=== PATIENT | female | born 1980 | race African-American/Black ===

== ENCOUNTER 2016-03-07 17:15 | Emergency (ER) | payer SELFPAY ==
[2016-03-07] MEDS ORDERED: IBUPROFEN 800 MG TABLET PO ONE (17:29)
--- NOTE | 2016-03-07 17:29 | ER Document Report ---
ED Medical Screen (RME) - General Stated Complaint: TOE PAIN Time seen by provider: 17:26 Mode of Arrival: Ambulatory Information source: Patient Notes: 35-year-old female presents to ED for pain left great toe infected right great toe has some pus coming out of it. Last menstrual period 01/29/2016 TRAVEL OUTSIDE OF THE [place] IN LAST 30 DAYS: No - Related Data Allergies/Adverse Reactions: Penicillins Allergy (Verified 03/07/16 17:26) Past Medical History - Past Medical History Cardiac Medical History: Denies: Hx Coronary Artery Disease, Hx Heart Attack, Hx Hypertension Pulmonary Medical History: Denies: Hx Asthma, Hx Bronchitis, Hx COPD, Hx Pneumonia Neurological Medical History: Denies: Hx Cerebrovascular Accident, Hx Seizures Musculoskeltal Medical History: Denies Hx Arthritis - Immunizations Hx Diphtheria, Pertussis, Tetanus Vaccination: Yes
[2016-03-07] MEDS ORDERED: IBUPROFEN 800 MG TABLET ONE (17:31)
[2016-03-07] MEDS ORDERED: LIDOCAINE 1%/EPINEPHRINE INJ 20 ML VIAL INJ ONE (20:59)
--- NOTE | 2016-03-07 21:39 | ER Document Report ---
ED General - General Chief Complaint: Toe Injury Stated Complaint: TOE PAIN Mode of Arrival: Ambulatory Notes: Patient is a 35-year-old female who presents with 2 weeks of progressively worsening pain of her left medial great toe. Says she has had some purulent drainage from the area that has been increasing in quantity over the last several days. Denies any associated constitutional symptoms. Described the pain as a constant, dull, throbbing pain that is worsened by wearing shoes or applying pressure to the area. Nothing improves the pain. She has not seen her primary care physician regarding today's concerns. States that she has a history of infected ingrown toenails in the past and this feels very similar to those occasions. TRAVEL OUTSIDE OF THE [place] IN LAST 30 DAYS: No - Related Data Allergies/Adverse Reactions: Penicillins Allergy (Verified 03/07/16 17:26) Past Medical History - General Information source: Patient - Social History Smoking Status: Never Smoker Chew tobacco use (# tins/day): No Frequency of alcohol use: None Drug Abuse: None Lives with: Spouse/Significant other Family History: Reviewed & Not Pertinent Patient has suicidal ideation: No Patient has homicidal ideation: No - Past Medical History Cardiac Medical History: Denies: Hx Coronary Artery Disease, Hx Heart Attack, Hx Hypertension Pulmonary Medical History: Denies: Hx Asthma, Hx Bronchitis, Hx COPD, Hx Pneumonia Neurological Medical History: Denies: Hx Cerebrovascular Accident, Hx Seizures Renal/ Medical History: Denies: Hx Peritoneal Dialysis Musculoskeltal Medical History: Denies Hx Arthritis - Immunizations Hx Diphtheria, Pertussis, Tetanus Vaccination: Yes Review of Systems - Review of Systems Notes: Constitutional: Negative for fever. Cardiovascular: Negative for chest pain. Respiratory: Negative for shortness of breath. Gastrointestinal: Negative for vomiting Musculoskeletal: Negative for back pain. Skin: Positive for left great ingrown toenail Neurological: Negative for weakness or numbness. 10 point ROS negative except as marked above and in HPI. Physical Exam - Vital signs Vitals: Temp Pulse Resp BP Pulse Ox 98.1 F 91 16 130/87 H 96 03/07/16 17:19 03/07/16 17:19 03/07/16 17:19 03/07/16 17:19 03/07/16 17:19 Interpretation: Normal Notes: PHYSICAL EXAMINATION: GENERAL: Well-appearing, well-nourished and in no acute distress. HEAD: Atraumatic, normocephalic. EYES: sclera anicteric, conjunctiva are normal. ENT: Moist mucous membranes. NECK: Normal range of motion LUNGS: Normal work of breathing HEART: 2+ DP pulses bilaterally EXTREMITIES: no pitting or edema. No cyanosis. NEUROLOGICAL: No focal neurological deficits. Moves all extremities spontaneously and on command. PSYCH: Normal mood, normal affect. SKIN: Warm, Dry, there is a small area of erythema along the medial aspect of the left great toe with associated purulent drainage Course - Re-evaluation Re-evalutation: 03/07/16 21:40 Patient presents with an infected ingrown toenail on the left great toe on the medial aspect. Vitals otherwise within normal limits. There was small mount of purulent drainage underneath the nail. See procedure note for nail removal technique. Patient tolerated procedure without difficulty. At this time will discharge with return precautions and follow-up recommendations. Verbal discharge instructions given a the bedside and opportunity for questions given. Medication warnings reviewed. Patient is in agreement with this plan and has verbalized understanding of return precautions and the need for primary care follow-up in the next 24-72 hours. - Vital Signs Vital signs: Temp Pulse Resp BP Pulse Ox 98.4 F 76 18 135/91 H 100 03/07/16 21:53 03/07/16 21:53 03/07/16 21:53 03/07/16 21:53 03/07/16 21:53 Procedures - Nail Trephanation/Removal Left Great toe Time completed: 21:10 Nail Trepanation/Removal Location: medial one fourth of the left great toe Betadine prep applied: Yes Method of Drainage: Other - Patient had a digital block applied. After anesthesia was achieved, patient was prepped and draped. The medial one fourth of the toenail was cut down using scissors with extraction using Eli clamps. A moderate amount of pus was drained with extraction of the nail. The wound was subsequently dressed. Sterile Dressing Applied: Yes Finger Splint: No Discharge - Discharge Clinical Impression: Ingrowing toenail with infection Condition: Good Disposition: HOME, SELF-CARE Additional Instructions: You were seen for an ingrown toenail with infection that required partial toenail removal. Please follow-up with podiatry in the next several days. Please clean this area with soap and water twice daily and apply a topical antibiotic. Dress the area after each cleaning. Please return if you develop fever, vomiting, the pain at the site worsens, you notice spreading redness from the area, or you have any other symptoms that are concerning to you.
[2016-03-07 21:54] VITALS: BP 135/91
== END 2016-03-07 21:46 | disposition home or self-care (01) ==
LOC: ER 17:15
PROC: 0HBRXZZ Excision of Toe Nail, External Approach (ICD-10-PCS; principal; 2016-03-07)
DX: L60.0 Ingrowing nail (principal); Z88.0 Allergy status to penicillin
CPT/HCPCS: 99283; 11750; J3490

== ENCOUNTER 2016-06-01 23:42 | Emergency (ER) | payer SELFPAY ==
[2016-06-01 23:52] VITALS: BP 135/84
--- NOTE | 2016-06-02 01:14 | ER Document Report ---
ED Extremity Problem, Lower - General Chief Complaint: Foot Pain Stated Complaint: FOOT PAIN Notes: The patient is a 35-year-old female who presents with multiple complaints. She has had multiple months of swelling around her bilateral shoulders and clavicles. In addition, she has had several days of swelling over the bilateral arches of her feet. She has not taken anything to help. She denies numbness, tingling, injury, new shoes, rash, fevers or difficulty walking. TRAVEL OUTSIDE OF THE [place] IN LAST 30 DAYS: No - Related Data Allergies/Adverse Reactions: Penicillins Allergy (Verified 06/01/16 23:45) Past Medical History - General Information source: Patient - Social History Smoking Status: Unknown if Ever Smoked Family History: Reviewed & Not Pertinent Patient has suicidal ideation: No Patient has homicidal ideation: No - Past Medical History Cardiac Medical History: Denies: Hx Coronary Artery Disease, Hx Heart Attack, Hx Hypertension Pulmonary Medical History: Denies: Hx Asthma, Hx Bronchitis, Hx COPD, Hx Pneumonia Neurological Medical History: Denies: Hx Cerebrovascular Accident, Hx Seizures Renal/ Medical History: Denies: Hx Peritoneal Dialysis Musculoskeltal Medical History: Denies Hx Arthritis - Immunizations Hx Diphtheria, Pertussis, Tetanus Vaccination: Yes Review of Systems - Review of Systems Notes: REVIEW OF SYSTEMS: CONSTITUTIONAL: -fevers, -chills EENT: -eye pain, -difficulty swallowing, -nasal congestion CARDIOVASCULAR: -chest pain, -syncope. RESPIRATORY: -cough, -SOB GASTROINTESTINAL: -abdominal pain, -nausea, -vomiting, -diarrhea GENITOURINARY: -dysuria, -hematuria MUSCULOSKELETAL: -back pain, -neck pain SKIN: -rash or skin lesions. HEMATOLOGIC: -easy bruising or bleeding. LYMPHATIC: -swollen, enlarged glands. NEUROLOGICAL: -altered mental status or loss of consciousness, -headache, - neurologic symptoms PSYCHIATRIC: -anxiety, -depression. ALL OTHER SYSTEMS REVIEWED AND NEGATIVE. Physical Exam - Vital signs Vitals: Temp Pulse Resp BP Pulse Ox 97.6 F 70 18 135/84 H 97 06/01/16 23:50 06/01/16 23:50 06/01/16 23:50 06/01/16 23:50 06/01/16 23:50 - Notes Notes: PHYSICAL EXAMINATION: GENERAL: Well-appearing, well-nourished and in no acute distress. HEAD: Atraumatic, normocephalic. EYES: Pupils equal round and reactive to light, extraocular movements intact, sclera anicteric, conjunctiva are normal. ENT: nares patent, oropharynx clear without exudates. Moist mucous membranes. NECK: Normal range of motion, supple without lymphadenopathy LUNGS: Breath sounds clear to auscultation bilaterally and equal. No wheezes rales or rhonchi. HEART: Regular rate and rhythm without murmurs ABDOMEN: Soft, nontender, normoactive bowel sounds. No guarding, no rebound. No masses appreciated. EXTREMITIES: Normal range of motion, no pitting or edema. No cyanosis. NEUROLOGICAL: Cranial nerves grossly intact. Normal speech, normal gait. Normal sensory, motor, and reflex exams. PSYCH: Normal mood, normal affect. SKIN: Warm, Dry, normal turgor, no rashes or lesions noted. Course - Re-evaluation Re-evalutation: Patient presents with multiple vague complaints that did not appear to be concerning for any acute life-threatening pathology. Vitals are within normal limits at triage and at time of discharge. Physical examination is unremarkable. Patient has tolerated oral intake without difficulty. Patient was not noted to be in distress at any point during their ER visit. At this time, based on the reassuring evaluation, I do not suspect an acute HI, pulmonary embolus, aortic dissection, acute intra-abdominal pathology, stroke, or sepsis.Will discharge with return precautions and follow-up recommendations. Verbal discharge instructions given a the bedside and opportunity for questions given. Medication warnings reviewed. Patient is in agreement with this plan and has verbalized understanding of return precautions and the need for primary care follow-up in the next 24-72 hours. - Vital Signs Vital signs: Temp Pulse Resp BP Pulse Ox 97.6 F 70 18 135/84 H 97 06/01/16 23:50 06/01/16 23:50 06/01/16 23:50 06/01/16 23:50 06/01/16 23:50 Discharge - Discharge Clinical Impression: Encounter for medical screening examination Condition: Good Disposition: HOME, SELF-CARE Additional Instructions: You may take Naprosyn 500 mg every 12 hours with food to help with your body aches. Follow-up with your primary care physician. NORMAL EXAM AND WORKUP: At this time, your examination and workup show no significant abnormality. No significant abnormal physical findings were noted. All laboratory, EKG, and imaging (x-ray, CT scans, ultrasound) studies that were ordered show no significant abnormality. Although your examination and all studies that were ordered showed no significant abnormal finding, there are no examinations and no studies that are 100% accurate. There is always the possibility that some abnormality could exist and not be detected with physical examination or within the limits and capabilities of laboratory and other studies. You should return or follow up as you were instructed on your visit today for further evaluation if your symptoms do not resolve.
[2016-06-02] MEDS ORDERED: NAPROXEN 250 MG TABLET PO ONE (01:28)
[2016-06-02] MEDS ORDERED: IBUPROFEN 600 MG TABLET PO ONE (01:51)
== END 2016-06-02 02:15 | disposition home or self-care (01) ==
LOC: ER 23:42
DX: Z13.9 Encounter for screening, unspecified (principal); M79.672 Pain in left foot; M79.671 Pain in right foot; M79.89 Other specified soft tissue disorders
CPT/HCPCS: 99283

== ENCOUNTER 2016-09-06 11:08 | Emergency (ER) | payer OTHER ==
[2016-09-06 11:18] VITALS: BP 138/88
--- NOTE | 2016-09-06 11:25 | ER Document Report ---
HPI - HPI Patient complains to provider of: toe pain Onset: Other - Onset/Duration: Gradual Pain Level: 2 Context: 35-year-old female complaining of left great toe pain with ingrown toenail since . She has been soaking it in Epsom salts. Part of it was cut out in June 2016 but it is just recently come back. She has not seen a brush maker. Associated Symptoms: None Exacerbated by: Walking Relieved by: Denies Similar symptoms previously: Yes Recently seen / treated by doctor: No - ROS ROS below otherwise negative: Yes Systems Reviewed and Negative: Yes All other systems reviewed and negative - REPRODUCTIVE Reproductive: DENIES: : - DERM Skin Color: Normal Past Medical History - General Information source: Patient - Social History Smoking Status: Never Smoker Frequency of alcohol use: None Drug Abuse: None Lives with: Family Family History: Reviewed & Not Pertinent - Medical History Medical History: Negative Renal/ Medical History: Denies: Hx Peritoneal Dialysis Musculoskeltal Medical History: Denies Hx Arthritis Surgical Hx: Negative - Immunizations Hx Diphtheria, Pertussis, Tetanus Vaccination: Yes Vertical Provider Document - CONSTITUTIONAL Agree With Documented VS: Yes Exam Limitations: No Limitations - INFECTION CONTROL TRAVEL OUTSIDE OF THE [place] IN LAST 30 DAYS: No - HEENT HEENT: Normocephalic - NECK Neck: Supple - RESPIRATORY O2 Sat by Pulse Oximetry: 97 - MUSCULOSKELETAL/EXTREMETIES Musculoskeletal/Extremeties: MAEW, FROM, Tender - fibular side of left great toenail mild infamed with some crusting and mild swelling, pink, not hot - NEURO Level of Consciousness: Awake, Alert, Appropriate Motor/Sensory: No Motor Deficit, No Sensory Deficit Course - Vital Signs Vital signs: Temp Pulse Resp BP Pulse Ox 98.6 F 111 H 16 138/88 H 97 09/06/16 11:17 09/06/16 11:17 09/06/16 11:17 09/06/16 11:17 09/06/16 11:17 Discharge - Discharge Clinical Impression: Mild ingrown toenail Condition: Good Disposition: HOME, SELF-CARE Instructions: Ingrown Nail ([facility]), Doxycycline ([facility]), Epsom Salt Soaks ([facility]) Additional Instructions: warm soaks to left great toe push the cuticle back and lift the nail as it grows out See the brush maker Return to the emergency room if worse Please complete the patient satisfaction survey if you get one, and return it.. If you do not receive a survey, then you can go to the [facility] website, [email or web address] and place your comments about your very good care. Thank you very much. It was a pleasure being your medical provider today. Prescriptions: Doxycycline Hyclate 100 mg PO BID #14 tablet Referrals: PINEDA MENDOZA DPM [ACTIVE STAFF] - Follow up as needed
== END 2016-09-06 11:54 | disposition home or self-care (01) ==
LOC: ER 11:08
DX: L60.0 Ingrowing nail (principal); M79.675 Pain in left toe(s)
CPT/HCPCS: 99283

== ENCOUNTER 2018-02-18 18:07 | Emergency (ER) | payer SELFPAY ==
[2018-02-18] MEDS ORDERED: IBUPROFEN 800 MG TABLET PO ONE (19:30)
--- NOTE | 2018-02-18 19:31 | ER Document Report ---
HPI - HPI Patient complains to provider of: Cold symptoms Time Seen by Provider: 02/18/18 19:24 Onset: Yesterday Onset/Duration: Gradual Quality of pain: Achy Pain Level: 2 Context: Patient presents complaining of cough, congestion sore throat that started yesterday. Patient denies any fever. Patient has a friend that was recently treated for walking pneumonia and she thinks that she contracted this from her friend. Associated Symptoms: Nonproductive cough, Rhinnorhea, Sore throat. denies: Earache, Fever Exacerbated by: Denies Relieved by: Denies Similar symptoms previously: No Recently seen / treated by doctor: No - ROS ROS below otherwise negative: Yes Systems Reviewed and Negative: Yes All other systems reviewed and negative - CONSTITUTIONAL Constitutional: DENIES: Fever - EENT EENT: REPORTS: Sore Throat, Congestion - NEURO Neurology: DENIES: Headache - RESPIRATORY Respiratory: REPORTS: Coughing - GASTROINTESTINAL Gastrointestinal: DENIES: Nausea, Patient vomiting - REPRODUCTIVE Reproductive: DENIES: : - MUSCULOSKELETAL Musculoskeletal: DENIES: Back Pain, Neck Pain - DERM Skin Color: Normal Skin Problems: None Past Medical History - General Information source: Patient - Social History Smoking Status: Never Smoker Frequency of alcohol use: None Drug Abuse: None Occupation: [employer] Family History: Reviewed & Not Pertinent Patient has suicidal ideation: No Patient has homicidal ideation: No - Medical History Medical History: Negative Neurological Medical History: Denies: Hx Cerebrovascular Accident, Hx Seizures Musculoskeletal Medical History: Denies Hx Arthritis Past Surgical History: Reports: Hx Orthopedic Surgery - toe sx - Immunizations Hx Diphtheria, Pertussis, Tetanus Vaccination: Yes Vertical Provider Document - CONSTITUTIONAL Agree With Documented VS: Yes Exam Limitations: No Limitations General Appearance: WD/WN, No Apparent Distress - INFECTION CONTROL TRAVEL OUTSIDE OF THE [place] IN LAST 30 DAYS: No - HEENT HEENT: Atraumatic, Normocephalic, Pharyngeal Tenderness, Pharyngeal Erythema. n egative: Pharyngeal Exudate, Tympanic Membrane Red, Tympanic Membrane Bulging - NECK Neck: Normal Inspection, Supple. negative: Lymphadenopathy-Left, Lymphadeno deepa-Right - RESPIRATORY Respiratory: Breath Sounds Normal, No Respiratory Distress, Chest Non-Tender. negative: Rales, Rhonchi, Wheezing - CARDIOVASCULAR Cardiovascular: Regular Rate, Regular Rhythm, No Murmur. negative: Tachycardia, Bradycardia - GI/ABDOMEN Gastrointestinal: Abdomen Soft - BACK Back: Normal Inspection - MUSCULOSKELETAL/EXTREMETIES Musculoskeletal/Extremeties: MIGDALIA SIN - NEURO Level of Consciousness: Awake, Alert, Appropriate Motor/Sensory: No Motor Deficit - DERM Integumentary: Warm, Dry, No Rash Course - Re-evaluation Re-evalutation: 02/18/18 20:37 Patient with negative rapid strep test. Chest x-ray without any worrisome findings for pneumonia. Will treat symptomatically at this time. Patient nontoxic in appearance with stable vital signs. - Vital Signs Vital signs: Temp Pulse Resp BP Pulse Ox 98.5 F 83 20 145/97 H 100 02/18/18 18:28 02/18/18 18:28 02/18/18 18:28 02/18/18 18:28 02/18/18 18:28 - Laboratory Laboratory results interpreted by me: 02/18/18 20:37 Labs- Entire Visit 02/18/18 19:47 Group A Strep Rapid NEGATIVE - Diagnostic Test Radiology reviewed: Image reviewed, Reports reviewed Discharge - Discharge Clinical Impression: Sore throat Upper respiratory infection Qualifiers: URI type: unspecified URI Qualified Code(s): J06.9 - Acute upper respiratory infection, unspecified Condition: Stable Disposition: HOME, SELF-CARE Instructions: Acetaminophen, Sore Throat ([facility]), Upper Respiratory Illness ([facility]) Additional Instructions: Return immediately for any new or worsening symptoms Followup with your primary care provider, call tomorrow to make a followup appointment Throat culture is pending, we will call if you need any different treatment Prescriptions: Guaifenesin/Pseudoephedrne HCl [Mucinex D ER Tablet] 1 each PO Q12 PRN #12 tab.er.12h PRN Reason: Naproxen [Naprosyn 250 Nmg Tablet] 1 tab PO BID #14 tablet Forms: Return to Work [facility]: [facility] [NO LOCAL MD] - Follow up as needed
--- NOTE | 2018-02-18 19:59 | RADIOLOGY REPORT (SQ) ---
EXAM DESCRIPTION: CHEST 2 VIEWS COMPLETED DATE/TIME: 02/18/2018 7:49 pm REASON FOR STUDY: cough COMPARISON: None. EXAM PARAMETERS: NUMBER OF VIEWS: two views TECHNIQUE: Digital Frontal and Lateral radiographic views of the chest acquired. RADIATION DOSE: NA LIMITATIONS: none FINDINGS: LUNGS AND PLEURA: No opacities, masses or pneumothorax. No pleural effusion. MEDIASTINUM AND HILAR STRUCTURES: No masses or contour abnormalities. HEART AND VASCULAR STRUCTURES: Heart normal size. No evidence for failure. BONES: No acute findings. HARDWARE: None in the chest. OTHER: No other significant finding. IMPRESSION: NO ACUTE RADIOGRAPHIC FINDING IN THE CHEST. TECHNICAL DOCUMENTATION: JOB ID: [id number] [employer]- All Rights Reserved Reading location - IP/workstation name: [email or web address]
[2018-02-18 20:46] VITALS: BP 148/88
== END 2018-02-18 20:46 | disposition home or self-care (01) ==
LOC: ER 18:07
DX: J02.9 Acute pharyngitis, unspecified (principal); J06.9 Acute upper respiratory infection, unspecified
CPT/HCPCS: 71046; 87070; 87880; 99284

== ENCOUNTER 2018-05-16 00:12 | Emergency (ER) | payer OTHER ==
--- NOTE | 2018-05-16 01:24 | ER Document Report ---
ED General - General Chief Complaint: Cough Stated Complaint: COUGH Time Seen by Provider: 05/16/18 01:10 Mode of Arrival: Ambulatory Information source: Patient TRAVEL OUTSIDE OF THE [place] IN LAST 30 DAYS: No - HPI Patient complains to provider of: Bad mucousy cough, left ear pain Onset: Last week Onset/Duration: Gradual, Persistent Quality of pain: Sharp Severity: Severe Pain Level: 4 Associated symptoms: Nonproductive cough, Earache. denies: Chills, Fever, Nausea, Vomiting, Rhinnorhea Exacerbated by: Denies Relieved by: Denies Similar symptoms previously: No Recently seen / treated by doctor: No Notes: 37-year-old -[place] female coming in today with 3-4 days of phlegmy cough and moderate to severe left ear pain. Denies fever and chills. Denies nausea vomiting dizziness and vertigo. No chronic medical problems. - Related Data Allergies/Adverse Reactions: Penicillins Allergy (Verified 05/16/18 00:15) Past Medical History - General Information source: Patient - Social History Smoking Status: Never Smoker Family History: Reviewed & Not Pertinent Patient has suicidal ideation: No Patient has homicidal ideation: No - Past Medical History Cardiac Medical History: Denies: Hx Coronary Artery Disease, Hx Heart Attack, Hx Hypertension Pulmonary Medical History: Denies: Hx Asthma, Hx Bronchitis, Hx COPD, Hx Pneumonia Neurological Medical History: Denies: Hx Cerebrovascular Accident, Hx Seizures Renal/ Medical History: Denies: Hx Peritoneal Dialysis Musculoskeletal Medical History: Denies Hx Arthritis Past Surgical History: Reports: Hx Orthopedic Surgery - toe sx, Hx Tubal Ligation - Immunizations Hx Diphtheria, Pertussis, Tetanus Vaccination: Yes Review of Systems - Review of Systems Notes: Constitutional: No fevers. No chills. EENT: No eye redness. No eye pain. Positive for left ear pain. No sore throat. Cardiovascular: No chest pain. No palpitations. Respiratory: Positive for cough. No shortness of breath. No respiratory distress. Gastrointestinal: No abdominal pain. No nausea, vomiting, or diarrhea. Genitourinary: Atraumatic. No lesions. No pain. No discharge. Musculoskeletal: Atraumatic. No swelling. No deformities. Skin: No rash or lesions. Lymphatic: No swollen lymph nodes. Neurologic: No headache. No syncope. Psychiatric: No suicidal or homicidal ideation. Physical Exam - Vital signs Vitals: Temp Pulse Resp BP Pulse Ox 97.5 F 74 16 143/85 H 94 05/16/18 00:18 05/16/18 00:18 05/16/18 00:18 05/16/18 00:18 05/16/18 00:18 - Notes Notes: General: Well-developed, well-nourished. In no acute distress. Non-toxic appearing. Cardiac: Well-perfused. Regular rate and rhythm. No murmurs, rubs, or gallops. Pulmonary: No respiratory distress. No cyanosis. Bilateral lung [place] are clear to auscultation. Abdominal: Non-distended. Non-rigid. Bowels sounds are present in all four qu adrants. No guarding or rebound. HEENT: Head is atraumatic. Conjunctivae not reddened. No tearing. PERRL. EOMI. Orbits atraumatic. No periorbital swelling or erythema. Oropharynx is without erythema, swelling, or exudates. Left tympanic membrane is bulging and erythematous. Right tympanic membrane is normal. Bilateral canals are without swelling, erythema, or exudates. No mastoid tenderness Neck: Supple. No adenopathy. No meningismus. Dermatologic: Warm with good turgor. No rash. Atraumatic. Chest: Atraumatic. No chest wall tenderness to palpation. Musculoskeletal: Moves all extremities well. No range of motion deficits. no muscular or joint tenderness. No paraspinal muscle tenderness. no midline spinal tenderness or step-off. Genitourinary: Examination deferred Neurologic: No gross neurologic deficits. Psychiatric: Normal mood. Course - Vital Signs Vital signs: Temp Pulse Resp BP Pulse Ox 97.5 F 74 16 143/85 H 94 05/16/18 00:18 05/16/18 00:18 05/16/18 00:18 05/16/18 00:18 05/16/18 00:18 Discharge - Discharge Clinical Impression: Elevated blood pressure reading Left otitis media Qualifiers: Otitis media type: unspecified Qualified Code(s): H66.92 - Otitis media, unspecified, left ear Condition: Good Disposition: HOME, SELF-CARE Instructions: Otitis Media ([facility]) Prescriptions: Cephalexin Monohydrate [Keflex 500 mg Capsule] 500 mg PO Q6H 10 Days #40 capsule Forms: Elevated Blood Pressure Referrals: [facility] [Provider Group] - Follow up as needed Print Language: Turkmen
[2018-05-16] MEDS ORDERED: CEPHALEXIN 500 MG CAPSULE PO ONE (01:27)
[2018-05-16 01:56] VITALS: BP 140/78
== END 2018-05-16 01:56 | disposition home or self-care (01) ==
LOC: ER 00:12
DX: H66.92 Otitis media, unspecified, left ear (principal); R03.0 Elevated blood-pressure reading, without diagnosis of hypertension; R05 Cough; H92.02 Otalgia, left ear
CPT/HCPCS: 99283